=== PATIENT | female | born 1980 | race Caucasian/White ===

== ENCOUNTER 2018-03-11 12:07 | Emergency (ER) | payer OTHER ==
[~2018-03-11] VITALS: Ht 167.6 cm; Wt 90.9 kg
[2018-03-11 12:18] VITALS: Ht 167.6 cm; Wt 90.9 kg
[2018-03-11] MEDS ORDERED: NEURONTIN 300300 MG PO (12:19)
[2018-03-11] MEDS ORDERED: PROZAC40 MG PO (12:19)
[2018-03-11] MEDS ORDERED: ULTRAM50 MG PO (12:20)
[2018-03-11] MEDS ORDERED: BC PILL (12:20)
[2018-03-11 13:00] LABS: ALBUMIN 3.4 g/dL (3.4-5.0); ALKALINE PHOSPHATASE 72 U/L (46-116); ALT (SGPT) 30 U/L (10-68); BILIRUBIN - TOTAL 0.31 mg/dL (0.2-1.3); CALC OSMOLALITY 278 mosm/kg (275-300); CALCIUM 8.4 mg/dL (8.5-10.1); CARBON DIOXIDE 23.4 mmol/L (21.0-32.0); CHLORIDE - SERUM 104 mmol/L (98-107); CREATININE - SERUM 0.7 mg/dL (0.6-1.3); GLUCOSE 101 mg/dL (74-106); POTASSIUM - SERUM 3.7 mmol/L (3.5-5.1); PROTEIN - SERUM 7.8 g/dL (6.4-8.2); SODIUM 139 mmol/L (136-145); UREA NITROGEN 15 mg/dL (7-18); eGFR NON AFRICAN AMERICAN > 90 mL/min (90-120)
[2018-03-11 13:04] LABS: AMYLASE - SERUM 51 U/L (25-115); LIPASE 127 U/L (73-393)
[2018-03-11 13:05] LABS: TROPONIN-I < 0.017 ng/mL (0.000-0.060)
[2018-03-11 13:09] LABS: HEMATOCRIT 37.6 % (36.0-48.0); HEMOGLOBIN 12.8 g/dL (12-16); MCH 32.9 pg (26.0-34.0); MCV 96.7 fL (80.0-100.0); MEAN PLATELET VOLUME 9.4 fL (7.4-10.4); PLATELET COUNT 296 10x3/uL (130-400); RBC 3.89 10x6/uL (4.00-5.40); WBC 7.5 10x3/uL (4.8-10.8)
[2018-03-11 13:47] LABS: APPEARANCE HAZY (CLEAR); BACTERIA MODERATE /hpf (NONE SEEN); BILIRUBIN NEGATIVE (NEGATIVE); COLOR YELLOW (YELLOW); EPITHELIAL CELLS 0-5 /hpf (0-5); GLUCOSE NEGATIVE (NEGATIVE); KETONE NEGATIVE (NEGATIVE); MUCUS <1+ /lpf (NONE SEEN); NITRITE NEGATIVE (NEGATIVE); PROTEIN NEGATIVE (NEGATIVE); UROBILINOGEN NORMAL (NORMAL); WHITE CELLS - URINE RARE /hpf (0-5)
[2018-03-11 13:48] LABS: HCG URINE NEGATIVE (NEGATIVE)
[2018-03-11] MEDS ORDERED: PHENERGAN25 M1 PO (16:23)
[2018-03-11] MEDS ORDERED: MIRALAX17 GM PO (16:23)
[2018-03-11 16:56] VITALS: BP 113/62
== END 2018-03-11 16:53 | disposition home or self-care (01) ==
LOC: D.ER 12:07
PROVIDERS: Family Medicine
DX: K56.41 Fecal impaction (principal); N83.202 Unspecified ovarian cyst, left side; N83.201 Unspecified ovarian cyst, right side; F17.200 Nicotine dependence, unspecified, uncomplicated; R11.2 Nausea with vomiting, unspecified

== ENCOUNTER 2018-04-14 05:35 | Day surgery (SDC) | payer OTHER ==
[2018-04-09 13:48] LABS: BASOPHILS 0.3 % (0-2); HEMATOCRIT 36.2 % (36.0-48.0); HEMOGLOBIN 11.9 g/dL (12-16); IMMATURE GRANULOCYTES 0.3 % (0-5); LYMPHOCYTES 37.9 % (15-50); MCH 32.7 pg (26.0-34.0); MCHC 32.9 g/dL (31.0-37.0); MCV 99.5 fL (80.0-100.0); MEAN PLATELET VOLUME 9.6 fL (7.4-10.4); MONOCYTES 4.4 % (2-11); NEUTROPHILS 54.1 % (40-80); PLATELET COUNT 252 10x3/uL (130-400); RBC 3.64 10x6/uL (4.00-5.40); RDW 12.2 % (11.5-14.5); WBC 6.7 10x3/uL (4.8-10.8)
[2018-04-09 14:00] LABS: CALC OSMOLALITY 274 mosm/kg (275-300); CALCIUM 8.3 mg/dL (8.5-10.1); CARBON DIOXIDE 26.6 mmol/L (21.0-32.0); CHLORIDE - SERUM 102 mmol/L (98-107); CREATININE - SERUM 0.8 mg/dL (0.6-1.3); GLUCOSE 92 mg/dL (74-106); POTASSIUM - SERUM 4.2 mmol/L (3.5-5.1); SODIUM 138 mmol/L (136-145); UREA NITROGEN 10 mg/dL (7-18); eGFR NON AFRICAN AMERICAN 85 mL/min (90-120)
[~2018-04-14] VITALS: Ht 167.6 cm; Wt 92.1 kg
[~2018-04-14 05:35] MED LIST: BC PILL; MIRALAX17 GM PO; NEURONTIN 300300 MG PO; PHENERGAN25 M1 PO; PROZAC40 MG PO; ULTRAM50 MG PO
[2018-04-14 06:15] VITALS: BP 106/57; Ht 167.6 cm; Wt 92.1 kg
[2018-04-14 06:42] LABS: HCG URINE NEGATIVE (NEGATIVE)
--- NOTE | 2018-04-14 10:50 | NUR ---
REC'D FROM RR. FAMILY AT BEDSIDE. C/O PAIN 12/09 HOWEVER REC'D 2MG DILAUDID IN RR AND TORADOL 30 POST SURGERY PROCEDURE. ICE WATER BROUGHT TO PT.
--- NOTE | 2018-04-14 11:17 | NUR ---
DR SIGALA HERE. PERCOCET 10MG PO ADMINISTERED PER ORDERS FOR C/O PAIN 12/09.
--- NOTE | 2018-04-14 11:20 | NUR ---
RANDA VEGETNIDIA SERVED. FAMILY AT BEDSIDE.
--- NOTE | 2018-04-14 11:30 | NUR ---
VAGINAL PACKING REMOVED BY Lucille RUSSELL RN.
--- NOTE | 2018-04-14 12:20 | NUR ---
DR CARO HERE . ORDERED LASIX 20MG IV. IF UNALBLE TO VOID POST LASIX INSERT MCCOLLUM CATHETER AND DC HOME.
--- NOTE | 2018-04-14 12:25 | NUR ---
LASIX 20MG IV ADMINISTERED. TALKING ON TELEPHONE. RELATES PAIN 10/09.
--- NOTE | 2018-04-14 13:00 | NUR ---
AMBULATED TO BATHROOM AND VOIDED WITHOUT DIFFICULTY. IV DC'D WITH CATHETER INTACT.
--- NOTE | 2018-04-14 13:15 | NUR ---
WRITTEN AND VERBAL DC INST GIVEN TO PT ALONG WITH RX. VERBALIZED UNDERSTANDING. WAITING FOR HER TRANSPOTATION TO GET HERE.
--- NOTE | 2018-04-14 14:05 | NUR ---
DC'D HOME WITH FAMILY VIA PRIVATE VEHICLE. TAKEN TO THE GIFT SHOP PER PT REQUEST VIA WC RELATING SHE WANTED TO SHOP SOME. STABLE AT TIME OF DC.
== END 2018-04-14 14:05 | disposition home or self-care (01) ==
LOC: D.OPS 05:35 → D.PAN 07:30 → D.OPS 14:05
PROVIDERS: Obstetrics & Gynecology
DX: N81.10 Cystocele, unspecified (principal); N39.3 Stress incontinence (female) (male)

== ENCOUNTER 2018-04-20 15:04 | Emergency (ER) | payer OTHER ==
[~2018-04-20] VITALS: Ht 167.6 cm; Wt 90.0 kg
[2018-04-20 15:48] VITALS: Ht 167.6 cm; Wt 90.0 kg
[2018-04-20 16:51] LABS: BASOPHILS 0.4 % (0-2); HEMATOCRIT 38.9 % (36.0-48.0); HEMOGLOBIN 13.2 g/dL (12-16); IMMATURE GRANULOCYTES 0.4 % (0-5); LYMPHOCYTES 21.1 % (15-50); MCHC 33.9 g/dL (31.0-37.0); MCV 97.3 fL (80.0-100.0); MEAN PLATELET VOLUME 9.9 fL (7.4-10.4); MONOCYTES 4.5 % (2-11); NEUTROPHILS 72.6 % (40-80); PLATELET COUNT 264 10x3/uL (130-400); RDW 12.2 % (11.5-14.5); WBC 11.2 10x3/uL (4.8-10.8)
[2018-04-20 17:19] LABS: ALBUMIN 3.5 g/dL (3.4-5.0); ALKALINE PHOSPHATASE 76 U/L (46-116); ALT (SGPT) 22 U/L (10-68); BILIRUBIN - TOTAL 0.21 mg/dL (0.2-1.3); CALC OSMOLALITY 282 mosm/kg (275-300); CALCIUM 8.9 mg/dL (8.5-10.1); CARBON DIOXIDE 26.1 mmol/L (21.0-32.0); CHLORIDE - SERUM 105 mmol/L (98-107); CREATININE - SERUM 0.8 mg/dL (0.6-1.3); GLUCOSE 100 mg/dL (74-106); POTASSIUM - SERUM 3.8 mmol/L (3.5-5.1); SODIUM 141 mmol/L (136-145); UREA NITROGEN 17 mg/dL (7-18); eGFR NON AFRICAN AMERICAN 85 mL/min (90-120)
[2018-04-20 19:05] LABS: APPEARANCE HAZY (CLEAR); BILIRUBIN NEGATIVE (NEGATIVE); COLOR YELLOW (YELLOW); GLUCOSE NEGATIVE (NEGATIVE); KETONE NEGATIVE (NEGATIVE); NITRITE NEGATIVE (NEGATIVE); PROTEIN NEGATIVE (NEGATIVE); RED CELLS - URINE >50 /hpf (0-5); SPECIFIC GRAVITY 1.015 (1.005-1.020); UROBILINOGEN NORMAL (NORMAL); WHITE CELLS - URINE >50 /hpf (0-5)
[2018-04-20 19:06] LABS: BACTERIA MODERATE /hpf (NONE SEEN); EPITHELIAL CELLS 0-5 /hpf (0-5)
[2018-04-20] MEDS ORDERED: SULFAMETHOXAZOL1 TA3 PO (20:49)
[2018-04-20 22:26] VITALS: BP 123/83
== END 2018-04-20 22:50 | disposition home or self-care (01) ==
LOC: D.ER 15:04
PROVIDERS: Emergency Medicine
DX: N39.0 Urinary tract infection, site not specified (principal)

== ENCOUNTER 2018-06-02 03:22 | Emergency (ER) | payer OTHER ==
[~2018-06-02] VITALS: Ht 167.6 cm; Wt 86.4 kg
[~2018-06-02 03:22] MED LIST changes: +SULFAMETHOXAZOL1 TA3 PO
[2018-06-02 03:25] VITALS: Ht 167.6 cm; Wt 86.4 kg
[2018-06-02 03:53] LABS: APPEARANCE CLEAR (CLEAR); BILIRUBIN NEGATIVE (NEGATIVE); COLOR STRAW (YELLOW); GLUCOSE NEGATIVE (NEGATIVE); KETONE NEGATIVE (NEGATIVE); NITRITE NEGATIVE (NEGATIVE); PH 5.5 (5.0-6.0); PROTEIN NEGATIVE (NEGATIVE); SPECIFIC GRAVITY 1.005 (1.005-1.020); UROBILINOGEN NORMAL (NORMAL)
[2018-06-02 03:54] LABS: HCG URINE NEGATIVE (NEGATIVE)
[2018-06-02 03:59] LABS: UDS - AMPHET NEGATIVE QUAL (NEGATIVE); UDS - BARB NEGATIVE QUAL (NEGATIVE); UDS - BENZO NEGATIVE QUAL (NEGATIVE); UDS - COCAINE NEGATIVE QUAL (NEGATIVE); UDS - OPIATE NEGATIVE QUAL (NEGATIVE); UDS - PCP NEGATIVE QUAL (NEGATIVE); UDS - THC NEGATIVE QUAL (NEGATIVE)
[2018-06-02 04:00] LABS: BACTERIA FEW /hpf (NONE SEEN); EPITHELIAL CELLS 0-5 /hpf (0-5); RED CELLS - URINE 0-5 /hpf (0-5); WHITE CELLS - URINE 0-5 /hpf (0-5)
[2018-06-02 04:31] LABS: BASOPHILS 0.3 % (0-2); EOSINOPHILS 1.7 % (0-7); HEMATOCRIT 36.7 % (36.0-48.0); HEMOGLOBIN 12.3 g/dL (12-16); IMMATURE GRANULOCYTES 0.4 % (0-5); LYMPHOCYTES 31.6 % (15-50); MCH 32.5 pg (26.0-34.0); MCHC 33.5 g/dL (31.0-37.0); MCV 97.1 fL (80.0-100.0); MEAN PLATELET VOLUME 9.9 fL (7.4-10.4); MONOCYTES 3.9 % (2-11); NEUTROPHILS 62.1 % (40-80); PLATELET COUNT 310 10x3/uL (130-400); RBC 3.78 10x6/uL (4.00-5.40); RDW 12.2 % (11.5-14.5); WBC 6.9 10x3/uL (4.8-10.8)
[2018-06-02 04:44] LABS: ALBUMIN 3.5 g/dL (3.4-5.0); ALKALINE PHOSPHATASE 75 U/L (46-116); ALT (SGPT) 27 U/L (10-68); BILIRUBIN - TOTAL 0.16 mg/dL (0.2-1.3); CALC OSMOLALITY 283 mosm/kg (275-300); CALCIUM 8.4 mg/dL (8.5-10.1); CARBON DIOXIDE 25.9 mmol/L (21.0-32.0); CHLORIDE - SERUM 107 mmol/L (98-107); CREATININE - SERUM 0.8 mg/dL (0.6-1.3); GLUCOSE 99 mg/dL (74-106); MAGNESIUM - SERUM 2.2 mg/dL (1.8-2.4); POTASSIUM - SERUM 4.1 mmol/L (3.5-5.1); PROTEIN - SERUM 7.8 g/dL (6.4-8.2); SODIUM 143 mmol/L (136-145); UREA NITROGEN 11 mg/dL (7-18); eGFR NON AFRICAN AMERICAN 85 mL/min (90-120)
[2018-06-02 06:03] VITALS: BP 108/65
== END 2018-06-02 06:10 | disposition other institution (70) ==
LOC: D.ER 03:22
PROVIDERS: Family Medicine
DX: G40.909 Epilepsy, unspecified, not intractable, without status epilepticus (principal)

== ENCOUNTER 2019-02-03 11:10 | Emergency (ER) | payer OTHER ==
[~2019-02-03] VITALS: Ht 167.6 cm; Wt 90.9 kg
[2019-02-03 11:29] VITALS: Ht 167.6 cm; Wt 90.9 kg
[2019-02-03 12:01] LABS: CALC OSMOLALITY 267 mosm/kg (275-300); CALCIUM 9.2 mg/dL (8.5-10.1); CHLORIDE - SERUM 102 mmol/L (98-107); CREATININE - SERUM 0.6 mg/dL (0.6-1.3); GLUCOSE 86 mg/dL (74-106); POTASSIUM - SERUM 3.6 mmol/L (3.5-5.1); SODIUM 135 mmol/L (136-145); UREA NITROGEN 10 mg/dL (7-18); eGFR NON AFRICAN AMERICAN > 90 mL/min (90-120)
[2019-02-03 12:09] LABS: BASOPHILS 0.2 % (0-2); EOSINOPHILS 1.6 % (0-7); HEMATOCRIT 40.5 % (36.0-48.0); HEMOGLOBIN 13.3 g/dL (12-16); IMMATURE GRANULOCYTES 0.3 % (0-5); LYMPHOCYTES 15.7 % (15-50); MCH 32.2 pg (26.0-34.0); MCHC 32.8 g/dL (31.0-37.0); MCV 98.1 fL (80.0-100.0); MEAN PLATELET VOLUME 10.1 fL (7.4-10.4); MONOCYTES 5.9 % (2-11); NEUTROPHILS 76.3 % (40-80); PLATELET COUNT 296 10x3/uL (130-400); RBC 4.13 10x6/uL (4.00-5.40); WBC 9.9 10x3/uL (4.8-10.8)
[2019-02-03 12:11] LABS: ALBUMIN 3.7 g/dL (3.4-5.0); ALKALINE PHOSPHATASE 76 U/L (46-116); ALT (SGPT) 39 U/L (10-68); AMYLASE - SERUM 51 U/L (25-115); BILIRUBIN - TOTAL 0.34 mg/dL (0.2-1.3); LIPASE 111 U/L (73-393); PROTEIN - SERUM 7.8 g/dL (6.4-8.2)
[2019-02-03 12:12] LABS: TROPONIN-I < 0.017 ng/mL (0.000-0.060)
[2019-02-03 12:40] LABS: APPEARANCE HAZY (CLEAR); BILIRUBIN NEGATIVE (NEGATIVE); COLOR YELLOW (YELLOW); GLUCOSE NEGATIVE (NEGATIVE); KETONE SMALL mg/dL (NEGATIVE); NITRITE NEGATIVE (NEGATIVE); PROTEIN NEGATIVE (NEGATIVE); UROBILINOGEN NORMAL (NORMAL)
[2019-02-03 12:41] LABS: BACTERIA MANY /hpf (NEGATIVE); EPITHELIAL CELLS 0-5 /hpf (0-5); MUCUS <1+ /lpf (NONE SEEN); WHITE CELLS - URINE 0-5 /hpf (NEGATIVE)
[2019-02-03 13:41] LABS: HCG URINE POSITIVE (NEGATIVE)
[2019-02-03 15:34] VITALS: BP 105/55
== END 2019-02-03 15:35 | disposition home or self-care (01) ==
LOC: D.ER 11:10
PROVIDERS: Family Medicine
DX: O26.899 Other specified pregnancy related conditions, unspecified trimester (principal); Z3A.00 Weeks of gestation of pregnancy not specified; R10.30 Lower abdominal pain, unspecified; R05 Cough; R09.81 Nasal congestion; J45.909 Unspecified asthma, uncomplicated

== ENCOUNTER 2019-02-09 17:21 | Emergency (ER) | payer OTHER ==
[~2019-02-09] VITALS: Ht 167.6 cm; Wt 90.9 kg
[2019-02-09 17:44] VITALS: Ht 167.6 cm; Wt 90.9 kg
[2019-02-09] MEDS ORDERED: PRENAVITE1 TAB PO (17:47)
[2019-02-09 18:09] LABS: BASOPHILS 0.2 % (0-2); EOSINOPHILS 0.4 % (0-7); HEMATOCRIT 38.1 % (36.0-48.0); HEMOGLOBIN 12.5 g/dL (12-16); IMMATURE GRANULOCYTES 0.3 % (0-5); LYMPHOCYTES 15.2 % (15-50); MCH 32.2 pg (26.0-34.0); MCHC 32.8 g/dL (31.0-37.0); MCV 98.2 fL (80.0-100.0); MEAN PLATELET VOLUME 9.6 fL (7.4-10.4); NEUTROPHILS 78.9 % (40-80); PLATELET COUNT 285 10x3/uL (130-400); RBC 3.88 10x6/uL (4.00-5.40); RDW 12.8 % (11.5-14.5)
[2019-02-09 18:20] LABS: CALC OSMOLALITY 271 mosm/kg (275-300); CALCIUM 8.8 mg/dL (8.5-10.1); CARBON DIOXIDE 24.4 mmol/L (21.0-32.0); CHLORIDE - SERUM 103 mmol/L (98-107); CREATININE - SERUM 0.8 mg/dL (0.6-1.3); GLUCOSE 89 mg/dL (74-106); POTASSIUM - SERUM 3.8 mmol/L (3.5-5.1); SODIUM 137 mmol/L (136-145); UREA NITROGEN 11 mg/dL (7-18); eGFR NON AFRICAN AMERICAN 85 mL/min (90-120)
[2019-02-09 18:24] LABS: APPEARANCE CLEAR (CLEAR); BILIRUBIN NEGATIVE (NEGATIVE); COLOR YELLOW (YELLOW); GLUCOSE NEGATIVE (NEGATIVE); KETONE MODERATE mg/dL (NEGATIVE); NITRITE NEGATIVE (NEGATIVE); PROTEIN NEGATIVE (NEGATIVE); UROBILINOGEN NORMAL (NORMAL)
[2019-02-09 18:57] LABS: ALBUMIN 3.5 g/dL (3.4-5.0); ALKALINE PHOSPHATASE 69 U/L (46-116); ALT (SGPT) 45 U/L (10-68); BILIRUBIN - TOTAL 0.51 mg/dL (0.2-1.3); HCG - QUANTITATIVE (MATERNAL) 55628 mIU/mL; PROTEIN - SERUM 7.6 g/dL (6.4-8.2)
[2019-02-09] MEDS ORDERED: ZOFRAN ODT4 MG/UDTAB PO (22:33)
[2019-02-09 22:50] VITALS: BP 92/45
== END 2019-02-09 22:50 | disposition home or self-care (01) ==
LOC: D.ER 17:21
PROVIDERS: Family Medicine
DX: O21.9 Vomiting of pregnancy, unspecified (principal); Z3A.01 Less than 8 weeks gestation of pregnancy

== ENCOUNTER 2019-08-02 13:45 | Emergency (ER) | payer OTHER ==
[~2019-08-02] VITALS: Ht 167.6 cm; Wt 88.6 kg
[~2019-08-02 13:45] MED LIST changes: +PRENAVITE1 TAB PO; +ZOFRAN ODT4 MG/UDTAB PO
[2019-08-02 14:14] VITALS: Ht 167.6 cm; Wt 88.6 kg
[2019-08-02 14:43] LABS: BASOPHILS 0.2 % (0-2); EOSINOPHILS 0.3 % (0-7); HEMATOCRIT 41.3 % (36.0-48.0); HEMOGLOBIN 13.8 g/dL (12-16); IMMATURE GRANULOCYTES 0.3 % (0-5); LYMPHOCYTES 18.7 % (15-50); MCH 31.4 pg (26.0-34.0); MCHC 33.4 g/dL (31.0-37.0); MCV 94.1 fL (80.0-100.0); MEAN PLATELET VOLUME 9.9 fL (7.4-10.4); MONOCYTES 4.9 % (2-11); NEUTROPHILS 75.6 % (40-80); PLATELET COUNT 268 10x3/uL (130-400); RBC 4.39 10x6/uL (4.00-5.40); RDW 12.9 % (11.5-14.5); WBC 11.2 10x3/uL (4.8-10.8)
[2019-08-02 14:47] LABS: ANION GAP 13.8 mmol/L (8-16); CALCIUM 9.1 mg/dL (8.5-10.1); CARBON DIOXIDE 23.8 mmol/L (21.0-32.0); CREATININE - SERUM 0.9 mg/dL (0.6-1.3); POTASSIUM - SERUM 3.6 mmol/L (3.5-5.1)
[2019-08-02 15:18] LABS: ALBUMIN 4.1 g/dL (3.4-5.0); BILIRUBIN - TOTAL 0.5 mg/dL (0.2-1.3); PROTEIN - SERUM 8.4 g/dL (6.4-8.2)
[2019-08-02 15:28] LABS: BILIRUBIN NEGATIVE (NEGATIVE); GLUCOSE NEGATIVE (NEGATIVE); HCG URINE POSITIVE (NEGATIVE); KETONE MODERATE mg/dL (NEGATIVE); NITRITE NEGATIVE (NEGATIVE); UROBILINOGEN NORMAL (NORMAL)
[2019-08-02 15:29] LABS: BACTERIA MODERATE /hpf (NEGATIVE); EPITHELIAL CELLS 0-5 /hpf (0-5); RED CELLS - URINE 0-5 /hpf (0-5); WHITE CELLS - URINE 0-5 /hpf (NEGATIVE)
[2019-08-02 16:03] VITALS: BP 118/73
[2019-08-02] MEDS ORDERED: MACROBID100 MG PO (16:08)
== END 2019-08-02 16:04 | disposition home or self-care (01) ==
LOC: D.ER 13:45
PROVIDERS: Family Medicine
DX: O21.0 Mild hyperemesis gravidarum (principal); Z3A.01 Less than 8 weeks gestation of pregnancy; R82.71 Bacteriuria